=== PATIENT | male | born 1990 | race Caucasian/White ===

== ENCOUNTER 2024-08-11 10:35 | Day surgery (SDC) | payer BC, SELFPAY ==
[2024-08-10 12:14] VITALS: BMI 49.4
[2024-08-11] VITALS (14 sets, daily range): BP systolic 118–142; BP diastolic 72–101; PULSE 82–101; RESP 13–22; TEMP 36.6–36.7; O2SAT 92–99; BMI 49.1
[2024-08-11] MEDS: DiphenhydrAMINE INJ 50 MG/ML VIAL 25 MG IVP (12:43)
[2024-08-11] MEDS: SODIUM CHLORIDE 0.9% 500 ML 500 ML 20 ML IV (12:43)
[2024-08-11] MEDS: fentaNYL CIT INJ 50 mCg/ML AMP 2ML (ASD USE ONLY) IVP (12:49)
[2024-08-11] MEDS: MIDAZOLAM INJ 1 MG/ML VIAL 2 ML (ASD USE ONLY) 2 MG IVP (12:49)
[2024-08-11] MEDS: LIDOCAINE JELLY 2% (Urojet) 10 ML TUBE TOP (12:58)
--- NOTE | 2024-08-11 14:18 | SUR.PHASEII ---
pt c/o sensation to defecate and urinate. bedpan and urinal provided to pt. pt states hes unable to go d/t fear or having an accident, pt educated he cannot get up right away due to the sedation and risk of falling. attempted to reposition pt to a more comfortable position. pt still unable to. after 20 min pt was assisted to the restroom, pt continues to c/o rectal pressure and the sensation to pass gas but unable to. pt was offered medication to help with the gas pain and pt declined and stated he will continue to try. pt educated on the risk and benefits of the meds and the risk of pt putting too much pressure to rectal area where the bands were placed. pt was educated since he is complaining of pain he cannot go home until he doesn't have pain and passes gas. d/c instruction were given to pt and partner and pt stated he felt the urge to use the rr. pt assisted to the restroom, went in the rr with the pt to also assist. came out of rr and stated the patient stated he felt dizzy while sitting on the toilet. this nurse stayed in the rr with the pt until the dizziness went away and was able to safely get the pt to a wheelchair. pt asked i really cant go home until you hear me fart pt educated that due to his cramping and discomfort those symptoms would need to resolves prior to d/c pt. once patient was safely in the chair vital signs were obtained and were all wnl. pt then states he is actually not cramping or hurting, what he feels is rectal pressure due to the band ligation. education provided to pt. both partner and pt agreed they understood and declined having questions or concerns. pt and partner stated they felt comfortable going home.
== END 2024-08-11 14:07 | disposition home or self-care (01) ==
PROVIDERS: PCP Specialist; Referring Provider Specialist; Visit Provider Specialist
PROC: 0DBE8ZX Excision of Large Intestine, Via Natural or Artificial Opening Endoscopic, Diagnostic (ICD-10-PCS; CPT 45380; principal; 2024-08-11 11:30)
DX: K64.3 Fourth degree hemorrhoids (principal)
CPT/HCPCS: 46221; 45378; A4649; J1200; J2250; J3010; J7999